=== PATIENT | male | born 1980 | race African-American/Black ===

== ENCOUNTER 2019-02-19 12:50 | Inpatient (IN) | payer SELFPAY ==
[2019-02-19 13:03] LABS: #Basophils 0.1 thou/uL (0.0-0.2); #Eosinphils 0.2 thou/uL (0.0-0.7); #Lymphocytes 1.9 thou/uL (1.20-3.40); #Monocytes 0.7 thou/uL (0.11-0.59); #Neutrophils 3.7 thou/uL (1.40-6.50); %Basophils 1.2 % (0.0-1.0); %Eosinophils 2.5 % (0.0-10.0); %Lymphocytes 29.6 % (21.0-51.0); %Monocytes 10.6 % (0.0-10.0); Hemoglobin 12.5 g/dL (14.0-18.0); Mean Corpuscular HGB CONC 33.3 g/dL (32.0-36.0); Mean Corpuscular Hemoglobin 30.4 pg (27.0-31.0); Mean Corpuscular Volume 91.4 fL (78.0-98.0); Mean Platelet Volume 7.1 fL (7.4-10.4); Platelet Count 243 thou/uL (130-400); RBC Distribution Width 11.2 % (11.5-14.5); Red Blood Cell (RBC) Count 4.12 mill/uL (4.70-6.10); White Blood Cell (WBC) Count 6.5 thou/uL (4.8-10.8)
--- NOTE | 2019-02-19 13:18 | RAD ---
XR Chest 1 View Portable HISTORY: Altered mental status COMPARISON: None FINDINGS: The heart size is normal. The lungs are well expanded without focal areas of consolidation, pneumothorax or pleural effusions. IMPRESSION: No radiographic evidence of acute cardiopulmonary process.
[2019-02-19 13:24] LABS: ALT (SGPT) 23 U/L (8-55); AST (SGOT) 12 U/L (5-34); Albumin 4.2 g/dL (3.5-5.0); Alkaline Phosphatase 58 U/L (40-110); Anion Gap 11 mmol/L (10-20); BUN (Urea Nitrogen) 18 mg/dL (8.4-25.7); Bilirubin, Total 0.5 mg/dL (0.2-1.2); CK (CPK) 198 U/L (30-200); Calc. Creatinine Clearance 0 mL/min (70-130); Calcium 9.2 mg/dL (7.8-10.44); Carbon Dioxide 25 mmol/L (22-29); Chloride 107 mmol/L (98-107); Estimated GFR-MDRD 28; Globulin 3.1 g/dL (2.4-3.5); Glucose 103 mg/dL (70-105); Potassium 3.3 mmol/L (3.5-5.1); Protein, Total 7.3 g/dL (6.0-8.3); Sodium 140 mmol/L (136-145)
[2019-02-19 13:47] LABS: Amphetamine Not Detected (NotDetected); Barbiturates Screen Not Detected (NotDetected); Benzodiazepine Screen Not Detected (NotDetected); Cocaine Metabolite Screen Detected (NotDetected); Medtox Control Line Valid? VALID (VALID); Medtox Reader # READER 4; Methadone Not Detected (NotDetected); Methamphetamine Not Detected (NotDetected); Opiate Screen Not Detected (NotDetected); Oxycodone Screen Not Detected (NotDetected); Phencyclidine (PCP) Not Detected (NotDetected); THC/Cannabinoid Screen Not Detected (NotDetected); Tricyclic Screen Not Detected (NotDetected)
[2019-02-19 13:49] LABS: Bilirubin Negative (Negative); Blood, Urine Trace (Negative); Clarity Turbid (Clear); Glucose, Urine (Dipstick) 150 mg/dL (Negative); Leukocyte 25 Leu/uL (Negative); Nitrite Negative (Negative); Protein, Urine (Dipstick) 200 mg/dL (Neg-Trace); RBC/HPF 0-3 HPF (0-3)
[2019-02-19 13:50] LABS: Bacteria/HPF 1+ HPF (None Seen)
--- NOTE | 2019-02-19 13:58 | CT ---
CT HEAD WITHOUT CONTRAST: Date: 02/19/19 INDICATION: Mental status change. No comparison studies. FINDINGS: Ventricles have normal size and position. There is an abnormal focal area of lucency seen in the anterior left basal ganglia region along the a nterior aspect of the internal capsule. This is indeterminate. It could represent acute or subacute l acunar infarct. Other lesions are not excluded. No evidence of hemorrhage or mass effect. No evidence of cortical infarct. IMPRESSION: An abnormal focal area of low attenuation anterior left basal ganglia region as described above. Francis mmend further evaluation with MRI brain with and without contrast to further characterize this lesion . POS: TPC
[2019-02-19 14:12] LABS: Alcohol Less than 10 mg/dL (Less than 10)
[2019-02-19 14:14] LABS: Magnesium 1.9 mg/dL (1.6-2.6)
[2019-02-19 14:15] LABS: Acetaminophen Less than 6.0 mcg/mL (10.0-30.0); Lipase 51 U/L (8-78)
[2019-02-19 14:29] LABS: Salicylate Less than 8.0 mg/dL (15.0-30.0)
[2019-02-19] MEDS ORDERED: hydrALAZINE 20 MG/ML VIAL SLOW IVP PRN (15:18)
[2019-02-19] MEDS ORDERED: Calcium Carbonate 500 MG ChewTAB PO PRN (15:18)
[2019-02-19] MEDS ORDERED: Acetaminophen 325 MG TAB PO PRN (15:18)
[2019-02-19] MEDS ORDERED: Ondansetron PF 4 MG/2 ML Vial IVP PRN (15:18)
[2019-02-19] MEDS ORDERED: Sodium Chloride 0.65% Nasal 44 ML BOT EA NARE PRN (15:18)
[2019-02-19] MEDS ORDERED: Ondansetron ODT 4 MG TAB PO PRN (15:18)
[2019-02-19] MEDS ORDERED: Loperamide HCl 2 MG CAP PO PRN (15:18)
[2019-02-19] MEDS ORDERED: Artificial Tears 18 DROP/0.9 ML EA EYE PRN (15:18)
[2019-02-19] MEDS ORDERED: Cepastat Lozenges 1 LOZ PO PRN (15:18)
[2019-02-19] MEDS ORDERED: Loratadine 10 MG TAB PO PRN (15:18)
[2019-02-19] MEDS ORDERED: Potassium Chloride 20 MEQ TAB PO SCH (15:18)
[2019-02-19] MEDS ORDERED: Senokot S 8.6-50 MG TAB PO PRN (15:18)
[2019-02-19] MEDS ORDERED: Zolpidem Tartrate 5 MG TAB PO PRN (15:18)
[2019-02-19] MEDS ORDERED: Diabetic Tussin 200 MG/10 ML UDCUP PO PRN (15:18)
[2019-02-19] MEDS ORDERED: Bisacodyl 10 MG SUPP PR PRN (15:18)
[2019-02-19] MEDS ORDERED: HYDROcodone/Acetaminophen 5/325 mg Tablet PO PRN (15:18)
--- NOTE | 2019-02-19 15:49 | HP ---
PRIMARY CARE PHYSICIAN: [facility] Call admission. REASON FOR ADMISSION: Acute toxic metabolic encephalopathy, acute kidney failure, abnormal CT brain. HISTORY OF PRESENT ILLNESS: A 38-year-old male, who has underlying history of hypertension, but he is not taking any medication as well as morbid obesity who was brought to emergency room for altered mental status. The patient reports that he was at [employer]. His friend went inside to shop and he was outside in his truck and what he remembers is that paramedics was around him. As per report, the patient was on the phone with his mother and talking about going back to rehab. The patient does not know what happened and how he passed out. He denies any associated chest pain, palpitation, shortness of breath. He denies any constipation, diarrhea, melena, hematochezia. He denies any abdominal pain. He denies any headache. He never had any stroke in past. The patient also denies any drug abuse, but his urine drug screen is positive for cocaine. The patient denies any previous history of stroke and today in the emergency room CT brain showed abnormal focal area of low attenuation in the anterior left basal ganglia region. The patient does not have any focal motor weakness or sensory symptoms this time as well. His chest x-ray was unremarkable. The patient denies any kidney problem in the past and his creatinine was elevated to 2.40 and lactic acid is elevated to 2.4. When he came to emergency room and when paramedics saw him, at that time he was febrile. In the emergency room, patient was given IV fluid and the patient became normal. He was alert and oriented and he was worried about his kids and he wanted to go home. ALLERGIES: NO KNOWN DRUG ALLERGIES. CURRENT HOME MEDICATIONS: The patient is not taking any prescribed medication, though he has hypertension history. REVIEW OF SYSTEMS: CONSTITUTIONAL: Negative for weight loss or gain, ability to conduct usual activities. SKIN: Negative for rash, itching. EYES: Negative for double vision, pain. ENT/MOUTH: Negative for nose bleeding, neck stiffness, pain, tenderness. CARDIOVASCULAR: Negative for palpitations, dyspnea on exertion, orthopnea. RESPIRATORY: Negative for shortness of breath, wheezing, cough, hemoptysis, fever or night sweats. GASTROINTESTINAL: Negative for poor appetite, abdominal pain, heartburn, nausea, vomiting, constipation, or diarrhea. GENITOURINARY: Negative for urgency, frequency, dysuria, nocturia. MUSCULOSKELETAL: Negative for pain, swelling. NEUROLOGIC/PSYCHIATRIC: Negative for anxiety, depression. ALLERGY/IMMUNOLOGIC: Negative for skin rash, bleeding tendency. Please see my HPI for pertinent positives and negatives. All other review of systems reviewed and negative except as mentioned in HPI. PAST MEDICAL HISTORY: The patient reports that he has history of hypertension, but he is not taking any medication, morbid obesity. PAST SURGICAL HISTORY: The patient denies any previous surgical history. PAST PSYCHIATRIC HISTORY: Reviewed and negative. SOCIAL HISTORY: The patient is . He has two kids, one is 3 year and another is 6 years. He smokes about 1 pack per day and he denies any alcohol abuse. He denies any other illicit drug abuse. FAMILY HISTORY: Negative for any acute coronary syndrome, coronary artery disease, heart disease or stroke. EMERGENCY ROOM COURSE: The patient has received IV fluid in the emergency room. The patient is given Narcan in the emergency room without any significant change. PHYSICAL EXAMINATION: VITAL SIGNS: Currently, blood pressure 129/70, pulse 87, respiratory rate 18, temperature 100.6, saturation 97% on 2 L. Weight 120 kg. GENERAL: The patient is currently alert, awake, no obvious acute distress. HEENT: Head normocephalic, atraumatic. Eyes, pupils round, reactive to light. Extraocular muscle intact. ENT, oropharynx within normal limits. Moist mucous membranes. No oral lesion. No pharyngeal erythema. No exudate. NECK: Supple. No JVD. No meningeal signs of irritation. LUNGS: Clear to auscultation without any rhonchi or rales. CARDIAC: S1, S2 regular. No murmur. No gallop. No rub. ABDOMEN: Obesity present, bowel sounds present. Nontender. Nondistended. No organomegaly. No mass. No suprapubic tenderness. BACK: Unremarkable. No CVA tenderness. EXTREMITIES: Upper extremity, passive movement of all joints are normal. Lower extremity, no edema. Good distal pulsation. SKIN: No skin rash. HEMATOLOGIC: No lymphadenopathy. NEUROLOGIC: Nonfocal examination. Cranial nerve 2 through 12 intact. Motor 5/5 in all 4 limbs. Sensation bilaterally symmetrical. Reflexes bilaterally symmetrical. Plantar bilateral flexor. No focal neurological deficit. No cerebellar sign. SIGNIFICANT LABORATORY DATA: Chest x-ray based on my review, no acute cardiopulmonary process. CT brain based on my review and reported as abnormal focal area of low attenuation in the anterior left basal ganglia. CBC: WBC 6.5, hemoglobin 12.5, platelet 243. BMP: Sodium 140, potassium 3.3, chloride 107, carbon dioxide 25, anion gap 11, BUN 18, creatinine 2.40, glucose 103, calcium 9.2, magnesium 1.9. Lactic acid 2.4. LFT: AST 12, ALT 23, alkaline phosphatase 58, and albumin 4.2. CK 198. Troponin I 0.019. Lipase 51. TSH 0.50. Urinalysis: Turbid, protein 200, glucose 150, ketone trace, WBCs 7 to 10, and bacteria 1+. Urine drug screen positive for cocaine. Serum drug screen negative. EKG normal sinus rhythm without any ischemic changes. ASSESSMENT AND PLAN: 1. Acute toxic metabolic encephalopathy, likely related with hypokalemia, acute kidney failure as well as cocaine abuse. The patient was also febrile and patient has lactic acidosis. His urinalysis is abnormal and he has a recent upper respiratory tract infection. We will treat him with empiric Rocephin 1 g q.24 hours and we will follow up on urine culture result and blood culture result. The patient does have abnormal CT brain finding and that is why he will need MRI for further evaluation, though patient does not have any focal neurological deficit at this point. At this point, suspected for old stroke versus subacute stroke given his untreated diagnosis of hypertension as well as intermittent cocaine use. 2. Acute kidney failure, likely prerenal. We do not have any previous kidney function on him, so it is unclear whether this is acute or chronic, but suspecting acute, we will give him IV fluid and we will repeat kidney function tomorrow and we will avoid nephrotoxins agent. We will also check urine sodium and creatinine level as well as urine protein creatinine ratio. Another possibility that this patient may have underlying hypertensive nephrosclerosis and cocaine induced nephropathy. 3. Hypokalemia. We will replace potassium chloride 40 mEq p.o. one time dose. 4. Cocaine, positive. I have provided counseling to avoid illicit drug abuse. 5. Tobacco abuse disorder. I have provided the patient counseling to avoid smoking. 6. History of hypertension. We will monitor patient's blood pressure and will start blood pressure medication while in hospital. 7. Morbid obesity. Dietary education given. Weight loss education given. Healthy lifestyle measure discussed with the patient. 8. Fever and lactic acidosis, unclear etiology, but we will give him IV Rocephin 1 g q.24 hours and follow up on culture result. 9. Deep venous thrombosis prophylaxis. Heparin 5000 units subcu twice daily. GI prophylaxis of Protonix 40 mg p.o. daily. CODE STATUS: The patient is full code. The patient's is surrogate decision maker. DISPOSITION PLAN: Based on clinical course, we are expecting the patient's stay in hospital more than 2 midnights. Plan of care of patient discussed with the patient and during this admission we will do neuro check and we will also check lipid profile as well as we will do walking program evaluation while in hospital. Job ID: [id number]
[2019-02-19 17:04] LABS: Lactic Acid 1.1 mmol/L (0.5-2.2)
--- NOTE | 2019-02-19 18:40 | MRI ---
MRI OF BRAIN WITHOUT CONTRAST: 02/19/19 INDICATIONS: Loss of consciousness. Abnormality seen on CT earlier today. FINDINGS: The ventricles have normal size and position. There is no evidence of restricted diffusion. There is a focal area of high T2 and FLAIR signal seen in the left periventricular white matter which corresponds to the area of low attenuation seen on CT. This is nonspecific but is abnormal in this a ged patient. Follow-up exam with IV contrast is recommended to assess for enhancement. There is another small high density focus in the subcortical white matter of the superior left fronta l lobe which is nonspecific. There is no other evidence of edema. The intracranial internal carotid arteries and cerebral arteries show flow voids. Dural venous sinuse s are patent. IMPRESSION: There is abnormal focus of high T2 and FLAIR signal in the periventricular white matter on the left. This would correspond to the lucency seen on CT. This is abnormal in this aged patient. Recommend pat ient return for MRI of brain with IV contrast to assess enhancement. If there is no enhancement, foll ow-up MRI could be performed in four to six months to assess stability. POS: MIRTHA
[2019-02-19] MEDS: Sodium Chloride 0.9% 1,000 ML IV SCH (21:18)
[2019-02-19] MEDS: Nicotine 21 MG PATCH TD SCH (21:26)
[2019-02-19] MEDS: cefTRIAXone\\ROCEPHIN 1 GM in Sodium Chloride 0.9% 100 ML IVPB SCH (21:37)
[2019-02-19] MEDS: Heparin 5,000 UNITS/ML VIAL SC SCH (21:38)
[2019-02-19 22:25] VITALS: BMI 34.9
[2019-02-19 23:05] LABS: Creatinine, Urine 68.08 mg/dL (63-166); Protein, Urine Random Quant Less than 10 mg/dL (1-14); Sodium, Urine 131 mmol/L (Not Available)
[2019-02-20 04:58] LABS: #Eosinphils 0.3 thou/uL (0.0-0.7); #Lymphocytes 2.7 thou/uL (1.20-3.40); #Monocytes 1.1 thou/uL (0.11-0.59); #Neutrophils 4.8 thou/uL (1.40-6.50); %Basophils 0.5 % (0.0-1.0); %Eosinophils 3.5 % (0.0-10.0); %Lymphocytes 30.5 % (21.0-51.0); %Monocytes 11.8 % (0.0-10.0); %Neutrophils 53.8 % (42.0-75.0); Hemoglobin 12.7 g/dL (14.0-18.0); Mean Corpuscular HGB CONC 34.6 g/dL (32.0-36.0); Mean Corpuscular Hemoglobin 31.7 pg (27.0-31.0); Mean Corpuscular Volume 91.4 fL (78.0-98.0); Mean Platelet Volume 7.4 fL (7.4-10.4); Platelet Count 228 thou/uL (130-400); RBC Distribution Width 11.1 % (11.5-14.5); Red Blood Cell (RBC) Count 4.01 mill/uL (4.70-6.10); White Blood Cell (WBC) Count 8.9 thou/uL (4.8-10.8)
[2019-02-20 05:25] LABS: Anion Gap 12 mmol/L (10-20); BUN (Urea Nitrogen) 18 mg/dL (8.9-20.6); Calc. Creatinine Clearance 115 mL/min (70-130); Calcium 9.2 mg/dL (7.8-10.44); Carbon Dioxide 24 mmol/L (22-29); Cardiac Risk 4.9 (Less than 4.5); Chloride 107 mmol/L (98-107); Cholesterol 153 mg/dl (< 200 Desired); Estimated GFR-MDRD 63; Glucose 84 mg/dL (70-105); HDL Cholesterol 31 mg/dL (>60 Neg Risk); LDL Cholesterol, Calculated 105 mg/dL; Potassium 3.6 mmol/L (3.5-5.1); Sodium 139 mmol/L (136-145); Triglycerides 84 mg/dL (Less than 150)
[2019-02-20] MEDS: Sodium Chloride 0.9% 1,000 ML IV SCH ×3 (06:47→09:30)
--- NOTE | 2019-02-20 07:46 | ULT ---
CAROTID ARTERIAL DOPPLER ULTRASOUND: 02/20/2019 HISTORY: Loss of consciousness, assess for carotid artery disease. COMPARISON: None. TECHNIQUE: Multiplanar reese-scale sonographic imaging of the arterial structures of the neck obtained with color -flow and spectral analysis. FINDINGS: Antegrade blood flow and normal arterial wave-forms documented within the carotid and vertebral syste m bilaterally. No significant atherosclerotic plaque is noted. VESSEL PEAK SYSTOLIC VELOCITY (cm per second) Right CCA 61 Right ICA 52 Right ECA 59 Left CCA 78 Left ICA 51 Left ECA 61 ICA/CCA ratio is 0.9 on the right and 0.7 on the left. IMPRESSION: No hemodynamically significant stenosis on the basis of sonographic velocity criteria. Transcribed Date/Time: 02/20/2019 9:28 AM
[2019-02-20] MEDS ORDERED: FLU VACC QS2019-20(6MOS UP)/PF 60 MCG/0.5 ML SYRINGE IM ONE (09:00)
[2019-02-20] MEDS: Heparin 5,000 UNITS/ML VIAL SC SCH ×3 (09:27→21:59)
[2019-02-20] MEDS: Amlodipine 10 MG TAB PO SCH (09:28)
--- NOTE | 2019-02-20 10:52 | PDOC.HOSPP ---
- Subjective Encounter Date: 02/20/19 Encounter Time: 07:15 Subjective: Patient seen and examined. No new complaints. No overnight events - Objective Vital Signs & Weight: Vital Signs (12 hours) Temp Pulse Resp BP BP Pulse Ox 02/20/19 09:28 65 166/103 H 02/20/19 07:00 98.6 F 65 18 166/103 H 95 02/20/19 03:13 97.6 F 64 18 180/118 H 96 Weight Weight 272 lb 9.6 oz Result Diagrams: 02/20/19 04:22 02/20/19 04:22 Radiology Reviewed by me: Yes EKG Reviewed by me: Yes Hospitalist ROS - Review of Systems Eyes: denies: pain, vision change, conjunctivae inflammation, eyelid inflammation, redness, other ENT: denies: ear pain, ear discharge, nose pain, nose discharge, nose congestion , mouth pain, mouth swelling, throat pain, throat swelling, other Respiratory: denies: cough, dry, shortness of breath, hemoptysis, SOB with excertion, pleuritic pain, sputum, wheezing, other Cardiovascular: denies: chest pain, palpitations, orthopnea, paroxysmal noc. dyspnea, edema, light headedness, other Gastrointestinal: denies: nausea, vomiting, abdominal pain, diarrhea, constipation, melena, hematochezia, other Genitourinary: denies: dysuria, frequency, incontinence, hematuria, retention, other Musculoskeletal: denies: neck pain, shoulder pain, arm pain, back pain, hand pain, leg pain, foot pain, other Skin: denies: rash, lesions, hector, bruising, other - Medication Medications: Active Medications Generic Name Dose Route Start Last Admin Trade Name Freq PRN Reason Stop Dose Admin Amlodipine Besylate 10 mg 02/20/19 09:00 02/20/19 09:28 Norvasc PO 10 mg DAILY ALDO Administration Heparin Sodium (Porcine) 5,000 units 02/19/19 21:00 02/20/19 09:27 Heparin SC 5,000 units TID ALDO Administration Ceftriaxone Sodium 1 gm/ 100 mls @ 200 mls/hr 02/19/19 16:00 02/19/19 21:37 Sodium Chloride IVPB 100 mls Q24HR ALDO Administration Sodium Chloride 1,000 mls @ 70 mls/hr 02/20/19 07:45 02/20/19 09:30 Normal Saline 0.9% IV 1,000 mls .[id number] ALDO Administration Nicotine 21 mg 02/19/19 16:00 02/19/19 21:26 Nicoderm Patch TD 21 mg Q24HR ALDO Administration Sodium Chloride 10 ml 02/20/19 09:00 02/20/19 09:55 Flush - Normal Saline IVF 10 ml Q12HR ALDO Administration - Exam General Appearance: NAD, awake alert Eye: PERRL, anicteric sclera ENT: normocephalic atraumatic, no oropharyngeal lesions Neck: supple, symmetric, no JVD, no thyromegaly Heart: RRR, no murmur, no gallops, no rubs Respiratory: CTAB, no wheezes, no rales, no ronchi Gastrointestinal: soft, non-tender, non-distended, normal bowel sounds, no palpable masses, no hepatomegaly, no splenomegaly Extremities: no cyanosis, no clubbing, no edema Skin: normal turgor, no lesions Neurological: cranial nerve grossly intact, normal sensation to touch, no focal deficits, no new deficit Musculoskeletal: normal tone, normal strength Psychiatric: normal affect, normal behavior Hosp A/P (1) Toxic metabolic encephalopathy Code(s): G92 - TOXIC ENCEPHALOPATHY Status: Resolved (2) Hypertension Code(s): I10 - ESSENTIAL (PRIMARY) HYPERTENSION Status: Chronic (3) Cocaine abuse Code(s): F14.10 - COCAINE ABUSE, UNCOMPLICATED Status: Chronic (4) Obesity (BMI 30.0-34.9) Code(s): E66.9 - OBESITY, UNSPECIFIED Status: Chronic (5) Fever Code(s): R50.9 - FEVER, UNSPECIFIED Status: Resolved (6) Tobacco abuse Code(s): Z72.0 - TOBACCO USE Status: Acute (7) Hypokalemia Code(s): E87.6 - HYPOKALEMIA Status: Resolved (8) Lactic acidosis Code(s): E87.2 - ACIDOSIS Status: Resolved (9) Abnormal CT of brain Code(s): R90.89 - OTH ABNORMAL FINDINGS ON DIAGNOSTIC IMAGING OF CNSL Status: Acute (10) Acute kidney failure Status: Acute - Plan old records reviewed/req, plan discussed w/ family 02/20/19 will repeat creatinine at 1 and then order MRI with contrast medication reviewed as above symptomatic treatment pt has significant improvement add amlodipine for hypertension reduce IVF
[2019-02-20] MEDS ORDERED: Gadobenate Dimeglumine 529 MG/1 ML (20ML VIAL) ONE (11:42)
--- NOTE | 2019-02-20 13:28 | MRI ---
MRI BRAIN WITH IV CONTRAST: 02/20/2019 HISTORY: Evaluate abnormal signal seen on prior MRI. COMPARISON: Noncontrast enhanced brain MRI 02/19/2019. TECHNIQUE: Multiplanar post contrast T1 weighted imaging through the brain obtained. FINDINGS: The recent noncontrast enhanced examination demonstrates a focus of T2 and FLAIR hyperintensity withi n the periventricular/deep white matter superior to the putamen on the left. There is decreased signal intensity in this region on the provided post contrast imaging. No abnormal enhancement is see n in this region. 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 The postcontrast imaging demonstrates no abnormal pathologic enhancement within the brain parenchyma. IMPRESSION: In the area of concern seen on recent noncontrast enhanced study there is no abnormal enhancement. Fo llow-up brain MRI in 4-6 months is thus advised. Transcribed Date/Time: 02/20/2019 1:37 PM
[2019-02-20] MEDS: Nicotine 21 MG PATCH TD SCH (16:59)
[2019-02-20] MEDS: cefTRIAXone\\ROCEPHIN 1 GM in Sodium Chloride 0.9% 100 ML IVPB SCH (16:59)
[2019-02-21] MEDS: Sodium Chloride 0.9% 1,000 ML IV SCH (01:54)
[2019-02-21 08:02] VITALS: BP 160/106; TEMP 97.6
[2019-02-21] MEDS: Amlodipine 10 MG TAB PO SCH (09:05)
[2019-02-21] MEDS: Heparin 5,000 UNITS/ML VIAL SC SCH (09:06)
--- NOTE | 2019-02-21 10:00 | DIS ---
DATE OF ADMISSION: 02/19/2019 DATE OF DISCHARGE: 02/21/2019 PRIMARY CARE PHYSICIAN: [facility] Call admission. DISCHARGE DISPOSITION: Home. PRIMARY DISCHARGE DIAGNOSES: 1. Acute kidney failure prerenal, improved. 2. Acute toxic metabolic encephalopathy, resolved. 3. Cocaine abuse. 4. Fever, likely viral illness, resolved. 5. Abnormal CT brain, ruled out ASSISTANT SPA MANAGER pathology. SECONDARY DISCHARGE DIAGNOSES: Obesity with BMI 35, tobacco abuse disorder, hypertension, noncompliance with treatment, and cocaine abuse. PRIMARY PROCEDURE/OPERATION: None. RADIOLOGICAL INVESTIGATION: Chest x-ray normal. CT of brain showed some hypodensity in left basal ganglia. Subsequently, we did MRI of brain, which did not enhance with contrast and recommended repeat MRI in 4 to 6 months. Carotid Doppler negative for any stenosis. SIGNIFICANT LABORATORY DATA: WBC 8.9, hemoglobin 12.7, platelet 228. Sodium 139, creatinine 1.41, LDL 105. Troponin negative. TSH 0.50. DISCHARGE MEDICATION: Amlodipine 10 mg p.o. daily. CONTRAINDICATION: None. CODE STATUS: Full code. INPATIENT CAR DUMPER OPERATOR HELPER: None. ALLERGIES: NO KNOWN DRUG ALLERGIES. DISCHARGE PLAN: Post hospital, the patient is instructed to make appointment with primary care physician in 1 or 2 weeks. HOSPITAL COURSE: A 38-year-old male, who was in parking lot at [employer] and he was found altered. He was also having high-grade fever by Paramedics when they checked his vitals. The patient was brought to ER. In the emergency room, he had CT of brain, which showed some abnormal attenuation in basal ganglia, though at that time the patient was completely alert and oriented without any focal neurological deficit. CT of brain finding significance was unknown. His chest x-ray was normal. He had no further fever. His urine drug screen was positive for cocaine. We presumed that his altered mental status was related with toxic metabolic encephalopathy, given he had acute kidney injury with prerenal etiology and cocaine positive in his urine drug screen. After admission, he was completely well with him and alert and oriented x3 without any focal neurological deficit. Regarding his abnormal CT brain finding, we did MRI of brain with and without contrast, which did not show any significant worrisome pathology and radiology recommended to repeat MRI in 4 to 6 weeks to compare. Carotid Doppler was also unremarkable. While in hospital, we hydrated with IV fluid and his renal function improved from 2.4 to 1.4 and now the patient is able to tolerate p.o. well. We discontinued IV fluid. We advised the patient to avoid NSAIDs. We also provided the patient education about avoiding cocaine and tobacco abuse. Healthy lifestyle measure was discussed. While in hospital, we noted that his blood pressure was running high and that is why we started amlodipine therapy during this admission, and he will follow up with primary care physician. I have seen and examined the patient at bedside today. REVIEW OF SYSTEMS: All review of systems reviewed with him and negative. PHYSICAL EXAMINATION: VITAL SIGNS: Today; temperature 97.6, pulse 64, respiratory rate 18, saturation 96% on room air, and blood pressure 160/106. Weight 272 pounds. GENERAL: The patient is alert and oriented x3. HEENT: Normocephalic and atraumatic. NECK: Supple. No JVD. No meningeal signs of irritation. LUNGS: Clear to auscultation without any rhonchi or rales. CARDIAC: S1 and S2 regular without any murmur. No gallop. No rub. ABDOMEN: Soft and benign without any tenderness. EXTREMITIES: No edema. NEUROLOGIC: Nonfocal examination. The patient is medically stable for discharge. All new medication prescription given to him and sent to his pharmacy. Job ID: [id number]
--- NOTE | 2019-02-24 09:50 | PQF ---
Francesco Camarena SALIM NOORJIBHAI MD [id number] CLINICAL DOCUMENTATION CLARIFICATION FORM: POST DISCHARGE Addendum to original discharge summary date: ____ Late entry note date: __ DATE:02/24/2019 ATTN:STEVE DELEON MD Please exercise your independent, professional judgment in responding to the clarification form. Clinical indicators are provided on the bottom of this form for your review Please check appropriate box(s): [ x ] Acute kidney failure is due to cocaine abuse [ ] Acute kidney failure is not due to cocaine abuse [ ] Other psychoactive drug: [ ] Unable to determine drug For continuity of documentation, please document condition throughout progress notes and discharge summary. Thank You. CLINICAL INDICATORS - SIGNS / SYMPTOMS / LABS Creatine-2.40-Documented in H&P on 02/19 by Steve Deleon Urine drug screen postive for cocaine-Documented in H&P on 02/19 by Steve Deleon Acute toxic metabolic encephalopthy, likely related with hypokalemia,Acute kidney failure as well as cocaine abuse--Documented in H&P on 02/19 by Steve Deleon Acute kidney failure, likely prerenal-Documented in H&P on 02/19 by Steve Deleon Another possibility that this patient may have underlying hypertensive nephrosclerosis and cocaine induced nephropathy-Documented in H&P on 02/19 by Steve Deleon RISKS: Acute toxic metabolic encephalopthy-Documented in H&P on 02/19 by Steve Deleon Hypokalemia- Documented in H&P on 02/19 by Steve Deleon TREATMENT: Sodium chloride 1000 ml IV-Medication snapshot SAP Plan Checker [employer] Winform Viewer (This form is maintained as a part of the permanent medical record) 2014 [employer], [employer]. All Rights Reserved [email or web address] [not provided] [email or web address]
== END 2019-02-21 11:25 | disposition home or self-care (01) | DRG 917 ==
LOC: EDBD 12:50 → ERS 12:50 → ERHOLD 14:57 → 2SE 18:51
PROVIDERS: ADMIT Internal Medicine; ATTEND Internal Medicine
DX: T40.5X1A Poisoning by cocaine, accidental (unintentional), initial encounter (principal); G92 Toxic encephalopathy; N17.9 Acute kidney failure, unspecified; E87.2 Acidosis; E87.6 Hypokalemia; E66.01 Morbid (severe) obesity due to excess calories; Z68.35 Body mass index [BMI] 35.0-35.9, adult; I10 Essential (primary) hypertension; F17.200 Nicotine dependence, unspecified, uncomplicated; Z91.14 Patient's other noncompliance with medication regimen
CPT/HCPCS: 36415; 51702; 70450; 70551; 70552; 71045; 80048; 80053; 80061; 80306; 80307; 81003; 81015; 82570; 83605; 83690; 83735; 84156; 84300; 84443; 84484; 85025; 87040; 87086; 87804; 90471; 90686; 90732; 93005; 93880; 96360; 96361; 96374; A9577; G0008; G0009; J0696; J1644; J3490